=== PATIENT | female | born 1995 | race African-American/Black ===

== ENCOUNTER 2017-07-27 13:00 | Emergency (ER) | payer SELFPAY ==
[~2017-07-27] VITALS: Ht 167.6 cm; Wt 61.2 kg
[2017-07-27] MEDS ORDERED: IBUPROFEN 600 MG TABLET PO ONE ×2 (13:30→13:33)
[2017-07-27 13:44] VITALS: BP 124/69
== END 2017-07-27 13:45 | disposition home or self-care (01) ==
LOC: ER 13:02
DX: S16.1XXA Strain of muscle, fascia and tendon at neck level, initial encounter (principal); V49.49XA Driver injured in collision with other motor vehicles in traffic accident, initial encounter; Y93.89 Activity, other specified; Y92.413 State road as the place of occurrence of the external cause; Y99.8 Other external cause status
CPT/HCPCS: 99283; A4606; Z7610

== ENCOUNTER 2017-09-19 10:20 | Emergency (ER) | payer BC ==
[~2017-09-19] VITALS: Ht 170.2 cm; Wt 66.7 kg
--- NOTE | 2017-09-19 10:31 | NUR ---
L U Q abd cramping, non radiating since this morning with nausea
--- NOTE | 2017-09-19 11:23 | NUR ---
RAC #20 IV ACCESS. BLOOD SAMPLE COLLECTED SENT TO LAB
--- NOTE | 2017-09-19 11:25 | NUR ---
IN[employer]CTOR [employer]OT[employer] AT BEDSIDE
[2017-09-19] MEDS ORDERED: ONDANSETRON HCL/PF 4 MG/2 ML VIAL IVP ONE (11:30)
[2017-09-19] MEDS ORDERED: IV NS 0.9% 1,000 ML BAG IV ONE (11:30)
[2017-09-19 11:32] LABS: APPEARANCE,URINE Clear (CLEAR); BILIRUBIN,URINE Negative (NEGATIVE); BLOOD, URINE Negative Ery/uL (NEGATIVE); COLOR,URINE Yellow (YELLOW); KETONES,URINE Negative (NEGATIVE); LEUKOCYTE ESTERASE ,URINE Negative (NEGATIVE); NITRITE, URINE Negative (NEGATIVE); PROTEIN,URINE Negative (NEGATIVE); UGLUCOSE Negative (NEGATIVE); UROBILINOGEN,URINE 0.2 EU/dL (0.2)
[2017-09-19] MEDS ORDERED: ONDANSETRON HCL/PF 4 MG/2 ML VIAL ONE (11:33)
--- NOTE | 2017-09-19 12:42 | NUR ---
Patient discharged to home in stable condition. Written and verbal after care instructions given. Patient verbalizes understanding of instruction.
--- NOTE | 2017-09-19 12:42 | NUR ---
IV removed. Catheter intact and site benign. Pressure and 4x4 applied to site. No bleeding noted.
[2017-09-19 13:03] VITALS: BP 124/70
== END 2017-09-19 13:04 | disposition home or self-care (01) ==
LOC: ER 10:33
DX: O20.0 Threatened abortion (principal)
CPT/HCPCS: 36415; 76856; 81001; 84702; 87086; 96361; 96374; 99285; A4606; J2405; J7030; Z7610; 81000-TC